=== PATIENT | female | born 1960 | race Caucasian/White ===

== ENCOUNTER 2024-05-17 02:13 | Emergency (ER) | payer SELFPAY ==
[2024-05-17 02:23] VITALS: BP 181/93
--- NOTE | 2024-05-17 02:39 | ED.GENMED ---
History of Present Illness
General
Chief Complaint: Abdominal Symptoms
Source: patient
Exam Limitations: none
Time Seen by Provider: 05/17/24 02:34
History of Present Illness
History of Present Illness:
See MDM
Past History
Past History
ED Past Medical History: None
ED Past Surgical History: Orthopedic
Social History
Tobacco: Non-smoker
Alcohol: None
Phy Exam
Physical Exam
Physical Exam:
See MDM
Course
Orders/Labs/Results
Orders:
Orders
05/17/24 02:36
Complete Blood Count/With Diff Urgent
Comprehensive Metabolic Panel Urgent
Lipase Urgent
Urinalysis Reflex To Culture Urgent
Date Specimen was Collected: 05/17/24
Time Specimen was Collected: 02:26
05/17/24 02:38
0.9% Sodium Chloride 1000 ml [Nss] 1,000 ml IV BOLUS
Morphine Sulfate 4 mg IV NOW STA
Ondansetron Injectable [Zofran] 4 mg IV NOW STA
05/17/24 02:39
Morphine Sulfate 4 mg .ROUTE .STK-MED ONE
Ondansetron Injectable [Zofran] 4 mg .ROUTE .STK-MED ONE
05/17/24 03:17
Prochlorperazine [Compazine] 10 mg IV NOW STA
Abnormal Lab Results
05/17/24
02:36
WBC 12.5 H 10^3/uL
(4.8-10.8)
Plt Count 509 H 10^3/uL
(130-400)
Absolute Lymphs (auto) 4.4 H 10^3/uL
(1.2-3.4)
Absolute Monos (auto) 1.5 H 10^3/uL
(0.1-0.6)
Monocytes % 11.9 H %
(1.7-9.3)
Glucose 110 H mg/dl
(70-99)
05/17/24 02:36
05/17/24 02:36
Vital Signs
Initial and Last Documented VS:
Initial Vital Signs
Pulse Resp Pulse Ox
87 20 98
05/17/24 02:20 05/17/24 02:20 05/17/24 02:20
Last Documented Vital Signs
Pulse Resp BP Pulse Ox
87 20 181/93 100
05/17/24 02:20 05/17/24 02:20 05/17/24 02:23 05/17/24 02:53
MDM/Problems Addressed
Differential Diagnosis Includes:
HPI and MDM Narrative:
64-year-old female presenting for evaluation of nausea and vomiting. Patient believes she has viral gastroenteritis. She does have a sick contact with similar symptoms. Patient states this feels very similar to prior episodes
On exam, patient does appear uncomfortable and she does have dry mucous membranes. However, she has a very soft and nontender abdomen. Will provide symptom control and continue to reassess
Physical exam
General: Mildly uncomfortable
HEENT: protecting airway. Dry mucous membranes
Neck: appears supple
CV: No evidence of cyanosis
Resp: No accessory muscle use
Abd: Non-distended. Soft and nontender
Extremities: No deformities
Neuro: alert
Psych: Normal affect
Skin: Intact
Problems Addressed including Acute and Chronic Conditions affecting care:
1. Nausea/vomiting
Acuity: acute
Prognosis: stable
Details: Likely in setting of viral gastroenteritis as patient described. Abdomen soft and nontender. Will give Zofran and morphine and continue to reassess
On reevaluation after Compazine, all symptoms resolving. Patient feeling much better and feels comfortable going home
Updates
Differential Diagnosis (but not limited to): Viral gastroenteritis, pancreatitis, colitis
Testing considered: Urinalysis
Drug therapy (if applicable): OTC meds, please see d/c instruction regarding Rx drugs
Amount and/or Complexity of Data Reviewed
Clinical info obtained from: Patient
External data reviewed: N/A
Labs I independently reviewed (but not limited to): Expected mild leukocytosis, electrolytes within normal limits
Radiology: N/A
Pulse Ox: not hypoxic
EKG independently reviewed: N/A
Deboner: N/A
Critical Care: N/A
Risk of Complication:
Social Determinants of health: Good social support
Discussed with other providers: N/A
Escalation of Care includes Admit/Obs: After being observed in the Emergency Department, pt stable for discharge.
Occasional wrong word or 'sound a like' substitutions may have occurred due to the inherent limitations of voice recognition software. Read the chart carefully and recognize, using context, where substitutions have occurred.
*Critical Care Note
Total Time (30-74mins, 75-104mins- exclusive of procedures): Not Applicable
ED Attending Note
-
Portions of this chart may have been created with voice recognition software.� Occasional wrong word or��sound alike� substitutions may have occurred due to the inherent limitations of voice recognition software.
Discharge Plan
Departure
Patient Disposition: Home (Routine Discharge)
Date of Disposition: 05/17/24
Time of Disposition: 04:40
Patient with high blood pressure during this ER visit?: Yes
Discharge Problem:
Viral gastroenteritis
Instructions: Dehydration, Adult (DC), Nausea and Vomiting, Adult (DC)
Prescriptions:
New
ondansetron 4 mg Tablet,Disintegrating
4 mg PO BIDPRN PRN (Reason: nausea/vomiting) Qty: 10 0RF
No Action
duloxetine
60 mg PO DAILY
pramipexole 0.5 mg Tablet
0.5 mg PO DAILY
Activity Restrictions/Additional Instructions:
Please return for any worsening symptoms.
You may return at any time if you have further concerns.
Please follow up with your doctor at the first available appointment, preferably this week.
Thank you for choosing [facility].
Interventions
Interventions:
*Risk Screen - Suicide Last Done: 05/17/24 02:20
*General Assessment Last Done: 05/17/24 02:20
*Neglect/Abuse Screening Last Done: 05/17/24 02:20
ED- Fall Risk Assessment Last Done: 05/17/24 02:53
SR-Bvqzww-Wfzappplng Assessment Last Done: 05/17/24 02:53
Discharge Date and Time
Print Language: PANAMANIAN
[2024-05-17] MEDS: NSS 1000 IV (02:41)
[2024-05-17] MEDS: MORPHINE SULFATE 4 MG IV (02:41)
[2024-05-17] MEDS: ZOFRAN 4 MG IV (02:42)
[2024-05-17] MEDS: COMPAZINE 10 MG IV (03:20)
[2024-05-17 03:26] LABS: Hematocrit 40.5 % (37.0-47.0); Hemoglobin 13.9 g/dL (12.0-16.0); Mean Corp Hgb Conc. 34.3 g/dL (33.0-37.0); Mean Corpuscular Hgb 30.3 pg (27.0-31.0); Mean Corpuscular Volume 88.2 fL (81.0-99.0); Mean Platelet Volume 9.3 fL (7.4-10.4); Platelet Count 509 10^3/uL (130-400); Red Blood Cell Count 4.59 10^6/uL (4.20-5.40); White Blood Cell Count 12.5 10^3/uL (4.8-10.8)
[2024-05-17 03:41] LABS: ALT (SGPT) 23 U/L (0-35); AST (SGOT) 30 U/L (14-36); Albumin 4.9 g/dl (3.5-5.0); Alkaline Phosphatase 109 U/L (38-126); Blood Urea Nitrogen 17 mg/dl (7-17); Calcium 10.1 mg/dl (8.4-10.2); Carbon Dioxide 23 mmol/L (22-30); Chloride 104 mmol/L (98-107); Glucose 110 mg/dl (70-99); Lipase 104 U/L (23-300); Potassium 3.9 mmol/L (3.5-5.1); Sodium 143 mmol/L (135-145); Total Bilirubin 0.7 mg/dl (0.2-1.3); Total Protein 7.5 g/dl (6.3-8.2); eGFR > 60.00
[2024-05-17 03:54] LABS: % Basophils 0.6 % (0-2); % Immature Granulocytes 0.3 % (0-0.5); % Lymphocytes 34.9 % (20.5-51.1); % Monocytes 11.9 % (1.7-9.3); % Neutrophils 51.3 % (42.2-75.2); Absolute Basophils 0.1 10^3/uL (0-0.2); Absolute Eosinophils 0.1 10^3/uL (0-0.7); Absolute Lymphocytes 4.4 10^3/uL (1.2-3.4); Absolute Monocytes 1.5 10^3/uL (0.1-0.6); Absolute Neutrophils 6.4 10^3/uL (1.4-6.5); Nucleated Red Blood Cells % 0 %
[2024-05-17 04:40] LABS: Urine Albumin Trace (Neg - Trace); Urine Bilirubin Negative (Negative); Urine Character Clear (Clear); Urine Color Yellow; Urine Glucose Negative (Negative); Urine Ketone Negative (Negative); Urine Leukocyte 1+ (Negative); Urine Nitrite Negative (Negative); Urine Occult Blood Trace (Negative); Urine Urobilinogen Negative (Neg - 1+)
[2024-05-17 04:50] LABS: Urine Calcium Oxalate Crystals Present; Urine Red Blood Cell None Seen /HPF (0-2)
== END 2024-05-17 05:00 | disposition home or self-care (01) ==
LOC: EMR 02:13
PROVIDERS: Emergency Medicine; EMERGENCY PHYSICIAN Student in an Organized Health Care Education/Training Program
DX: A08.4 Viral intestinal infection, unspecified (principal)
CPT/HCPCS: 99282; 96374; 96375; 96361; 80053; 81003; 81015; 83690; 85025; 87086

== ENCOUNTER 2024-09-19 10:18 | Emergency (ER) | payer OTHER, SELFPAY ==
[2024-09-19 10:30] VITALS: BP 146/72
--- NOTE | 2024-09-19 12:30 | ED.GENMED ---
History of Present Illness
General
Chief Complaint: Fall
Source: patient
Time Seen by Provider: 09/19/24 11:27
History of Present Illness
History of Present Illness:
64-year-old female with past medical history of anxiety and depression presenting to the emergency department for evaluation of left-sided rib pain that began Friday after she had an accidental fall while walking with her stating that
either her walking stick or tree branch fell into her left breast/chest area and has had persistent pain since, worse last night into this morning opting her to come to the ER for further evaluation. Patient notes difficult time getting comfortable
in any position and notes worsening pain with deep inspiration. Denies any fevers or infectious symptoms, no other injuries sustained. Has attempted Motrin/Tylenol with minimal relief. Patient also had leftover tramadol from previous injury which
she took but without any relief.
Past History
Past History
ED Past Medical History: Psychiatric
ED Past Surgical History: Orthopedic and Tonsilectomy
Social History
Tobacco: Non-smoker
Alcohol: None
Drug: None
Personal:
Living: with family
Employment: Retired
Review of Systems
Review of Systems
All Other Systems: ROS reviewed and negative except as documented in HPI and ROS
Phy Exam
Physical Exam
Physical Exam:
GENERAL: Alert , in no apparent distress but does appear uncomfortable especially with movement or deep inspiration
HEAD: NCAT
EYE: conjunctiva clear
NECK: Supple
ENT: o/p clr, mmm.
CARDIAC: Regular rate and rhythm
LUNGS: Clear breath sounds bilaterally, no acute respiratory distress, no wheezes/rales/rhonchi
CHEST WALL/BREAST EXAM: Chaperoned by floor specialist Radha: No obvious chest wall deformity, erythema, edema, ecchymosis, abrasion/laceration. There is tenderness over the anterior inferior portion of the breast extending laterally inferior to the
axilla.
NEUROLOGICAL: Alert and oriented
SKIN: Warm and dry, skin intact.
MUSCULOSKELETAL: well perfused.
PSYCH: Normal and appropriate interaction.
Scores
Heart Failure Risk
Heart Failure Risk Score: Not Applicable
Heart Score for Chest Pain Patients
STEMI patient?: Not applicable
Withdrawal Assessment of Alcohol
Withdrawal Assessment Completed?: Not applicable
Course
Orders/Labs/Results
Orders:
Orders
09/19/24 11:42
CR Ribs-left 3 Vw W/pa Chest Urgent
Comment:
Reason For Exam: fall, pain anterolateral 5-6 rib
09/19/24 12:41
Oxycodone/Acetaminophen [Percocet 5/325] 1 tablet PO NOW STA
Vital Signs
Initial and Last Documented VS:
Initial Vital Signs
Temp Pulse Resp BP Pulse Ox
97.3 F 81 18 146/72 100
09/19/24 10:30 09/19/24 10:30 09/19/24 10:30 09/19/24 10:30 09/19/24 10:30
Last Documented Vital Signs
Temp Pulse Resp BP Pulse Ox
97.3 F 78 18 131/70 97
09/19/24 10:30 09/19/24 12:53 09/19/24 12:53 09/19/24 12:53 09/19/24 12:53
MDM/Problems Addressed
Differential Diagnosis Includes:
Chest wall contusion, rib fracture, rib cartilage injury, pneumothorax, given injury occurred more than 72 hours ago and patient's stability I do not have concern for other visceral injury
MDM/Problems Addressed:
64-year-old female presenting to the emergency department for evaluation following an accidental fall resulting in left anterior rib pain that worsens with deep inspiration and movement. Patient still with pain despite NSAIDs/Tylenol. No
respiratory difficulty noted. Rib series x-ray ordered. Reassessment following
*Radiology
Radiology exam reviewed: preliminary read by ED provider (No acute fracture or pneumothorax) and radiology read reviewed
*Pulse Oximetry
Patient hypoxic: no
*Critical Care Note
Total Time (30-74mins, 75-104mins- exclusive of procedures): Not Applicable
Patient Management
Escalation/DeEscalation of care consider admission/obs:
Patient's x-ray unremarkable for any acute pathology. Currently does not have a primary care provider as she recently moved to the area from [place]. Will notify primary care provider resources to help patient obtain primary care provider
through [employer]. Meantime short-term prescription for Percocet was sent to pharmacy to be used as needed for pain. Continue NSAIDs/Tylenol. Patient otherwise stable for discharge home.
ED Attending Note
-
Portions of this chart may have been created with voice recognition software.� Occasional wrong word or��sound alike� substitutions may have occurred due to the inherent limitations of voice recognition software.
Discharge Plan
Departure
Patient Disposition: Home (Routine Discharge)
Date of Disposition: 09/19/24
Time of Disposition: 12:30
Patient with high blood pressure during this ER visit?: Yes
Discharge Problem:
Contusion of rib on left side
Instructions: Rib fracture or bruised rib - ED discharge instructions
Prescriptions:
New
oxycodone-acetaminophen [Percocet] 5-325 mg tablet
1 tab PO Q6HPRN PRN (Reason: pain) Qty: 6 0RF
No Action
duloxetine
60 mg PO DAILY
pramipexole 0.5 mg Tablet
0.5 mg PO DAILY
ondansetron 4 mg Tablet,Disintegrating
4 mg PO BIDPRN PRN (Reason: nausea/vomiting) Qty: 10 0RF
Referrals:
UNKNOWN - PT DOES,NOT KNOW [Family Provider] -
Interventions
Interventions:
*Risk Screen - Suicide Last Done: 09/19/24 10:30
*General Assessment Last Done: 09/19/24 10:30
*Neglect/Abuse Screening Last Done: 09/19/24 10:30
ED- Fall Risk Assessment Last Done: 09/19/24 12:53
*ED COVID-19 Vaccine History Last Done: 09/19/24 12:53
*Nursing Disposition Last Done: 09/19/24 12:55
ED-Musculoskeletal Assessment Last Done: 09/19/24 12:53
ED- Neurological Assessment Last Done: 09/19/24 12:53
ED-Skin Assessment Last Done: 09/19/24 12:53
Discharge Date and Time
Discharge Date/Time: 09/19/24 12:56
Print Language: UKRAINIAN
[2024-09-19] MEDS: PERCOCET 5/325 1 TABLET PO (12:47)
[2024-09-19 12:53] VITALS: BP 131/70
== END 2024-09-19 12:56 | disposition home or self-care (01) ==
LOC: EMR 10:18
PROVIDERS: EMERGENCY PHYSICIAN Student in an Organized Health Care Education/Training Program
DX: S20.212A Contusion of left front wall of thorax, initial encounter (principal); W19.XXXA Unspecified fall, initial encounter; Y93.01 Activity, walking, marching and hiking; R03.0 Elevated blood-pressure reading, without diagnosis of hypertension; F32.A Depression, unspecified; F41.9 Anxiety disorder, unspecified
CPT/HCPCS: 99283; 71101

== ENCOUNTER → 2024-12-15 14:19 | Outpatient (REF) | payer OTHER, SELFPAY | LOC: HWRAD 14:19 | PROVIDERS: ATTENDING PHYSICIAN Nurse Practitioner Adult Health | DX: R07.89 Other chest pain (principal) | CPT/HCPCS: 71101 ==